=== PATIENT | male | born 1990 | race African-American/Black ===

== ENCOUNTER 2020-02-20 17:15 | Emergency (ER) | payer SELFPAY ==
[~2020-02-20] VITALS: Ht 177.8 cm; Wt 81.8 kg
[2020-02-20] MEDS ORDERED: IV NORMAL SALINE 1,000ML 1,000 ML IV ONE (17:30)
--- NOTE | 2020-02-20 17:37 | PHYS DOC ---
Past History Past Medical History: No Pertinent History Past Surgical History: No Surgical History Smoking: Cigarettes Alcohol Use: None Drug Use: Marijuana Adult General Chief Complaint Chief Complaint: MULTIPLE COMPLAINTS [facility] HPI Patient is a 29-year-old male presenting for URI-like symptoms. Onset was 1 w [place] ago. Started out as simple nasal congestion that developed into rhinorrhea, postnasal drip and ongoing dry nonproductive cough. Nothing known makes better, patient reports worsening cough whenever he is lying flat or after smoking. Patient attempted to take "2 big hits "of marijuana in attempt to alleviate his symptoms just prior to arrival but it did not seem to help and made his shortness of breath worse prompting him to come in for evaluation. Associated symptoms include URI-like symptoms, shortness of breath, nonproductive cough, generalized nausea and x3 episodes of looser stools than usual today. Denies fever greater than 100.4, no syncope, no chest pain, no hemoptysis or production of sputum, no abdominal pain, no urinary symptoms, no history of recent long distance travel, sick contacts or known COVID-19 exposure Review of Systems Review of Systems Fourteen body systems of review of systems have been reviewed. See HPI for pertinent positives and negative responses, other valencia all other systems are negative, non-pertinent or non-contributory Physical Exam Physical Exam General: Appears well, non toxic, and comfortable. Smells of marijuana Skin: Warm, dry. Normal for ethnicity. HEENT: Atraumatic. PERRLA. Rhinorrhea and congestion. Nasal turbinates boggy b/l. Moist mucous membranes. Uvula midline. Maintaining secretions. No phonation changes. Neck: Trachea midline. Normal ROM. No stridor. Respiratory: Normal WOB. CTAB w/o w/r/r. No tachypnea. Cardiovascular: Regular rate and rhythm. Normal peripheral perfusion. Abdomen: Soft. Non tender. No distension. Back: Normal ROM. Musculoskeletal: No swelling or deformity. Neuro: Alert and oriented x 4. MAEE. Lymph: No cervical LAD. Psych: Normal affect and mood. Current Patient Data Vital Signs Vital Signs Date Time Temp Pulse Resp B/P (MAP) Pulse Ox O2 Delivery O2 Flow Rate FiO2 02/20/20 18:11 98.6 96 18 139/86 (103) 100 Lab Results Laboratory Tests Test 02/20/20 17:40 Sodium Level 139 mmol/L Potassium Level 4.0 mmol/L Chloride Level 103 mmol/L Carbon Dioxide Level 28 mmol/L Anion Gap 8 Blood Urea Nitrogen 11 mg/dL Creatinine 0.9 mg/dL Estimated GFR (Cockcroft-Gault) 122.5 BUN/Creatinine Ratio 12 Glucose Level 112 mg/dL Calcium Level 8.6 mg/dL Total Bilirubin 0.2 mg/dL Aspartate Amino Transf (AST/SGOT) 19 U/L Alanine Aminotransferase (ALT/SGPT) 24 U/L Alkaline Phosphatase 77 U/L Total Protein 6.8 g/dL Albumin 3.3 g/dL Albumin/Globulin Ratio 0.9 Current Medications Medications (Trade) Dose Ordered Sig/Renzo Route PRN Reason Start Time Stop Time Status Last Admin Dose Admin Sodium Chloride 1,000 ml @ 1,000 mls/hr 1X ONCE IV 02/20/20 17:30 02/20/20 18:29 DC EKG EKG [] Radiology/Procedures Radiology/Procedures [] Heart Score HEART Score for Chest Pain: HEART Score for Chest Pain Response (Comments) Value History Slighlty/Non-Suspicious 0 Age < 45 0 Risk Factors No Risk Factors 0 Total 0 Risk Factors: Risk Factors: DM, Current or recent (<one month) smoker, HTN, HLP, family history of CAD, obesity. Risk Scores: Risk Factors: DM, Current or recent (<one month) smoker, HTN, HLP, family history of CAD, obesity. Course & Med Decision Making Course & Med Decision Making Discussed with the patient all findings and diagnostic testing. I discussed most likely diagnosis of viral syndrome, cannot exclude COVID-19 infection. Patient checked for COVID-19 and will discharge home as a PUI with instructions to self quarantine. I also advised patient to stop smoking marijuana. I stressed need for close outpatient follow-up to review today's ER visit whenever it is safe to do so pending COVID-19 test results. Strict return precautions were also discussed at length with good understanding by patient. Patient voiced understanding and agreement with the plan. Patient knows to come back for repeat evaluation if concerning signs or symptoms present prior to outpatient follow- up. Hemodynamically stable, ambulatory and well-appearing at time of disposition. Dragon Disclaimer Dragon Disclaimer This electronic medical record was generated, in whole or in part, using a voice recognition dictation system. Departure Departure: Impression: Primary Impression: Viral syndrome Additional Impressions: Person under investigation for COVID-19 Nausea and vomiting Disposition: 01 DC HOME SELF CARE/HOMELESS Condition: IMPROVED Referrals: PCP,ИВАН (PCP) Patient Instructions: Viral Syndrome Additional Instructions: You were seen for generalized upper respiratory tract infection-like symptoms concerning for possible infection with COVID-19. Your physical exam was reassuring. We tested you for COVID-19 but this test does not come back for 1 to 2 days. In the meantime you need to quarantine yourself at home away from all other individuals, especially those who are elderly or have any other chronic health issues or an immunocompromised status. You should return to the ED if you develop worsening cough, shortness of breath, chest pain, or any other new or concerning symptoms. Alternate Tylenol and ibuprofen as needed for body aches and pain. If your test does come back positive you need to quarantine yourself for 10 days until symptom-free. You should make sure to drink plenty of fluids and get plenty of rest. Problem Qualifiers TAMIKO WHITAKER DO Feb 20, 2020 17:37
[2020-02-20 18:11] VITALS: BP 139/86
[2020-02-20 18:18] LABS: CALCIUM 8.6 mg/dL (8.5-10.1); CREATININE 0.9 mg/dL (0.7-1.3); GFR 122.5
[2020-02-20 18:23] LABS: ALBUMIN 3.3 g/dL (3.4-5.0); ALBUMIN/GLOBULIN RATIO 0.9 (1.0-1.7); TOTAL BILIRUBIN 0.2 mg/dL (0.2-1.0); TOTAL PROTEIN 6.8 g/dL (6.4-8.2)
--- NOTE | 2020-02-22 10:43 | NUR ---
IP: attempt to notify patient of COVID result, left callback message.
== END 2020-02-20 18:57 | disposition home or self-care (01) ==
LOC: ER 17:15
DX: B34.9 Viral infection, unspecified (principal); Z20.828 Contact with and (suspected) exposure to other viral communicable diseases; R11.2 Nausea with vomiting, unspecified; R05 Cough; J34.89 Other specified disorders of nose and nasal sinuses; F17.210 Nicotine dependence, cigarettes, uncomplicated; F12.90 Cannabis use, unspecified, uncomplicated
CPT/HCPCS: 36415; 80053; 99283; U0003; C9803

== ENCOUNTER 2021-01-30 17:51 | Emergency (ER) | payer MEDICAID, OTHER | END 2021-01-30 18:45 | disposition left against medical advice (07) | LOC: ER 17:51 | DX: M54.9 Dorsalgia, unspecified (principal); Z53.21 Procedure and treatment not carried out due to patient leaving prior to being seen by health care provider ==

== ENCOUNTER 2021-02-13 14:40 | Emergency (ER) | payer SELFPAY ==
[~2021-02-13] VITALS: Ht 180.3 cm; Wt 69.4 kg
[2021-02-13 15:10] VITALS: BP 153/74
[2021-02-13] MEDS ORDERED: PENICILLIN G BENZATHINE LA 1,200,000 UNIT/2 ML DISP.SYRIN. IM ONE (16:30)
[2021-02-13] MEDS ORDERED: DIPHTH,PERTUSS(ACELL),TET TOX 0.5 ML DISP.SYRIN. VAX IM ONE (16:30)
[2021-02-13] MEDS ORDERED: HYDR-2155 PO (16:33)
--- NOTE | 2021-02-13 16:34 | PHYS DOC ---
Past History Past Medical History: No Pertinent History Past Surgical History: No Surgical History Smoking: Cigarettes Alcohol Use: None Drug Use: Marijuana General Adult EDM: Chief Complaint: COLD EXPOSURE HPI: HPI: Patient is a 30-year-old male who presents to the emergency department for frostbite to his feet. Patient reports that he was out in the for 3 hours on Saturday without proper shoes. Patient reports burning and tingling pain to both of his feet. He reports that he is able to bear weight and ambulate and denies any decreased sensation in his extremities. Review of Systems: Review of Systems: Musculoskeletal: See HPI Integument: See HPI Neurologic: See HPI Current Medications: Current Meds: Current Medications Medications (Trade) Dose Ordered Sig/Renzo Start Time Stop Time Status Last Admin Dose Admin Diphtheria/ Tetanus/Acell Pertussis (Boostrix) 0.5 ml ONCE ONCE 02/13/21 16:30 02/13/21 16:31 Penicillin G Benzathine (Bicillin L-A) 1,200,000 unit 1X ONCE 02/13/21 16:30 02/13/21 16:31 Allergies: Allergies: Allergies Coded Allergies Type Severity Reaction Last Updated Verified No Known Drug Allergies 02/20/20 No Physical Exam: PE: Constitutional: Well developed, well nourished, no acute distress, non-toxic appearance. [] HENT: Normocephalic, atraumatic, bilateral external ears normal, oropharynx moist, no oral exudates, nose normal. [] Eyes: PERRL, EOMI, conjunctiva normal, no discharge. [] Neck: Normal range of motion, no tenderness, supple, no stridor. [] Cardiovascular:Heart rate regular rhythm, no murmur [] Lungs & Thorax: Bilateral breath sounds clear to auscultation [] Abdomen: Bowel sounds normal, soft, no tenderness, no masses, no pulsatile masses. [] Skin: Warm, dry, no erythema, no rasH, white blistering noted to bilateral feet worse to heels, refill less than 3 seconds to all areas of foot except right fourth and fifth toe, patient does have black discoloration to bilateral feet but that is from his shoes and is removable. Range of motion intact, no hemorrhagic blisters, no open wounds, no redness/warmth or drainage Back: Normal range of motion Extremities: No tenderness, no cyanosis, no clubbing, ROM intact, no edema. [] Neurologic: Alert and oriented X 3, normal motor function, normal sensory function, no focal deficits noted. [] Psychologic: Affect normal, judgement normal, mood normal. [] Current Patient Data: Vital Signs: Vital Signs Date Time Temp Pulse Resp B/P (MAP) Pulse Ox O2 Delivery O2 Flow Rate FiO2 02/13/21 15:10 98.1 105 20 153/74 (100) 97 Room Air EKG: EKG: [] Radiology/Procedures: Radiology/Procedures: [] Heart Score: C/O Chest Pain: N/A Risk Factors: Risk Factors: DM, Current or recent (<one month) smoker, HTN, HLP, family history of CAD, obesity. Risk Scores: Score 0 - 3: 2.5% MACE over next 6 weeks - Discharge Home Score 4 - 6: 20.3% MACE over next 6 weeks - Admit for Clinical Observation Score 7 - 10: 72.7% MACE over next 6 weeks - Early Invasive Strategies Course & Med Decision Making: Course & Med Decision Making Pertinent Labs and Imaging studies reviewed. (See chart for details) Patient presents to the emergency department for frostbite to bilateral feet that occurred 48 hours ago. Range of motion and neuro intact is intact. I spoke to Dr. James with [facility] who advised to ensure that feet are rewarmed, ensure adequate hydration, pain management, elevation, wound with dry sterile gauze. He stated that patient is beyond the window for TPA. He stated that it would take approximately 2 months for demarcation and patient should follow-up with [facility] within a week or 2. Feet are already rewarmed. Dry sterile sudeep ssings were placed. Patient educated on wound care. Patient treated with tetanus and antibiotic. Patient also given pain medication for home. Patient given community resources for shelters. He was also given follow-up information for [facility]. I discussed with patient all findings and diagnostic testing as well as the need to follow-up with PCP for further evaluation and treatment or return to the ER if any new or worsening symptoms. Strict return precautions were also discussed at length. Patient voiced understanding and agreement with the plan. Patient is hemodynamically stable at the time of disposition. Norman Disclaimer: Norman Disclaimer: This electronic medical record was generated, in whole or in part, using a voice recognition dictation system. Departure Departure: Impression: Primary Impression: Frostbite Qualified Codes: T33.90XA - Superficial frostbite of unspecified sites, initial encounter Disposition: HOME / SELF CARE / HOMELESS Condition: GOOD Referrals: PCP,NO (PCP) Patient Instructions: Frostbite Additional Instructions: He was seen in the emergency department today for frostbite to your feet. Your tetanus is updated and you are given an antibiotic in the emergency department. You need to keep your feet clean and dry. Keep dressings in place. Please keep your feet warm and prevent refreezing. Please use elevation. Ensure proper hydration duration and increase your fluids. You can take NSAIDs for mild pain and you are being discharged home with hydrocodone and Tylenol combination tablet for severe pain. This medication may cause drowsiness so do not take need to be alert, driving a vehicle or with alcohol. If you do not have a home please see the community resources that we were provided for you because it is necessary that you do not stay out in the cold. Please follow-up with burn center within a week. You can call them at [phone]. If you develop worsening of your pain or any signs of infection which include redness, warmth, swelling or drainage, decreased sensation in your extremities or decreased range of motion or inability to ambulate please return to the ER. Scripts Hydrocodone Bit/Acetaminophen (HYDROCODONE-APAP 5-325 ) 1 Each Tablet 1 TAB PO PRN Q6HRS PRN for PAIN for 2 Days, #8 TAB 0 Refills Prov: JOSEFINA PACK APRN 02/13/21 JOSEFINA PACK APRN Feb 13, 2021 16:34
== END 2021-02-13 17:00 | disposition home or self-care (01) ==
LOC: ER 14:40
DX: T33.822A Superficial frostbite of left foot, initial encounter (principal); T33.821A Superficial frostbite of right foot, initial encounter; F17.210 Nicotine dependence, cigarettes, uncomplicated; X31.XXXA Exposure to excessive natural cold, initial encounter; Y93.89 Activity, other specified; Y92.89 Other specified places as the place of occurrence of the external cause; Y99.8 Other external cause status
CPT/HCPCS: 90471; 90715; 96372; 99284; J0561

== ENCOUNTER 2021-04-30 18:35 | Emergency (ER) | payer SELFPAY ==
[~2021-04-30] VITALS: Ht 180.3 cm; Wt 73.2 kg
[~2021-04-30 18:35] MED LIST: HYDR-2155 PO
--- NOTE | 2021-04-30 19:54 | PHYS DOC ---
Past History Past Medical History: No Pertinent History Past Surgical History: No Surgical History Smoking: Cigarettes Alcohol Use: None Drug Use: Marijuana General Adult EDM: Chief Complaint: CELLULITIS HPI: HPI: Patient is a 30 year old male with no significant PMHx who presents with right great toe pain for the last three days. He states that about three days ago he started having some moderate 6/10 right great toe pain that radiated into his calf. He pulled off his sock and noticed a small blister to the underside of his right great toe that he removed. He states that since then the pain has worsened to a 8/10 today, redness and swelling to the area with drainage from the toe and a "foul smell". He has been taking ibuprofen 400mg daily with no relief and nothing he does makes the pain better. Any movement makes the pain worse. He reports some chills but denies any nausea or vomiting. He was seen back in 02/17/2021 for frostnip of his feet b/l and has not had any follow up. He continues to have pain in his feet b/l and has been seen multiple times for the pain with recent admission to [facility] on 04/19/21 with discharge on 04/21/21. He was given gabapentin and oxycodone for pain but reports he is out of his oxycodone pain medication. Review of Systems: Review of Systems: Constitutional: Denies fever, reports chills Musculoskeletal: Denies back pain; reports right ankle and toe pain Integument: Reports ulceration to the right great toe and erythema and swelling to right foot up to ankle Neurologic: Denies headache, focal weakness or sensory changes Complete systems were reviewed and found to be within normal limits, except as documented in this note. Current Medications: Current Meds: Current Medications Medications (Trade) Dose Ordered Sig/Renzo Start Time Stop Time Status Last Admin Dose Admin Clindamycin Phosphate 50 ml @ 100 mls/hr 1X ONCE 04/30/21 19:15 04/30/21 19:44 Ketorolac Tromethamine (Toradol 15mg Vial) 15 mg 1X ONCE 04/30/21 19:30 04/30/21 19:31 DC Mupirocin (Bactroban) 1 darshana 1X ONCE 04/30/21 19:30 04/30/21 19:31 DC Sodium Chloride 1,000 ml @ 1,000 mls/hr 1X ONCE 04/30/21 19:15 04/30/21 20:14 Allergies: Allergies: Allergies Coded Allergies Type Severity Reaction Last Updated Verified No Known Drug Allergies 02/20/20 No Physical Exam: PE: Constitutional: Well developed, well nourished, no acute distress, non-toxic appearance HENT: Normocephalic, atraumatic Eyes: Conjunctiva normal, no discharge Neck: Normal range of motion, no tenderness, supple Lungs & Thorax: No respiratory distress, equal chest rise and fall Skin: Ulceration to the plantar surface of the right great toe with maceration around the wound site, no significant drainage from the wound site, dry/cracked skin to the left and right feet, erythema and edema to the right foot up to ankle Back: No tenderness, no CVA tenderness Extremities: Tenderness to the right foot with normal ROM to the right ankle, normal ROM to the right knee, +2 b/l TP pulses, difficulty palpating the dorsal pulses given edema Neurologic: Alert and oriented X 3, normal motor function, normal sensory function, no focal deficits noted Psychologic: Affect normal, judgment normal Current Patient Data: Vital Signs: Vital Signs Date Time Temp Pulse Resp B/P (MAP) Pulse Ox O2 Delivery O2 Flow Rate FiO2 04/30/21 18:45 99.0 115 18 142/72 (95) 98 Room Air EKG: EKG: [] Radiology/Procedures: Radiology/Procedures: PROCEDURE: FOOT RIGHT 3V Exam: Right foot 3 views INDICATION: Ulceration right great toe. TECHNIQUE: Frontal, lateral oblique views of the right foot Comparisons: None FINDINGS: Diffuse soft tissue swelling at the forefoot. There is irregularity at the level of the first digit. Bone mineralization is normal. No acute or healed fractures. Joint spaces are well-maintained. IMPRESSION: Soft tissue swelling at the forefoot with ulceration at the first digit. No underlying osseous abnormality identified. Electronically signed by: Anirudh Vargas MD (04/30/2021 8:41 PM) [facility] Heart Score: C/O Chest Pain: N/A Course & Med Decision Making: Course & Med Decision Making Pertinent Labs and Imaging studies reviewed. (See chart for details) Patient presents with HPI and physical exam concerning for right foot cellulitis and/or osteomyelitis of right big toe. Patient has superficial skin ulceration to plantar aspect of large toe. Patient is afebrile. Labs obtained and posted to chart. WBC and lactic acid within normal limits. CRP elevated. X-ray obtained without signs of bony involvement. Empiric antibiotic initiated. Pain addressed. Dressing applied with local wound care including topical antibiotic. A postop shoe was also provided to prevent friction/pressure on ulcer. Patient stable for discharge with outpatient follow-up with PCP/wound care. Wound care referral provided. Discussed findings and plan with patient, who a cknowledges understanding and agreement. Norman Disclaimer: Norman Disclaimer: This electronic medical record was generated, in whole or in part, using a voice recognition dictation system. Splinting Splinting : Location: Right foot Pre-Made Type: Post op shoe Pre-Proc Neuro Vasc Exam: normal Post-Proc Neuro Vasc Exam: normal, unchanged from pre-exam Departure Departure: Impression: Primary Impression: Toe ulcer Qualified Codes: L97.511 - Non-pressure chronic ulcer of other part of right foot limited to breakdown of skin Additional Impression: Cellulitis Qualified Codes: L03.115 - Cellulitis of right lower limb Disposition: 01 HOME / SELF CARE / HOMELESS Condition: STABLE Referrals: PCP,NO (PCP) Patient Instructions: Cellulitis, [id number], Skin Ulcer, Wound Care, [id number] Additional Instructions: Do not soak your wound. You may shower. Clean wound daily with soap and water. Use provided antibiotic ointment 3 times daily with clean dressing. Call wound care at [facility] for further evaluation and treatment of your chronic foot wound. [address] [place] [address] Scripts Hydrocodone Bit/Acetaminophen (HYDROCODONE-APAP 5-325 ) 1 Each Tablet 0.5 TAB PO PRN Q6HRS PRN for PAIN, #10 TAB 0 Refills Prov: KRISTIE KEATING DO 04/30/21 Clindamycin Hcl (CLINDAMYCIN HCL) 300 Mg Capsule 1 CAP PO TID for Infection for 10 Days, #30 CAP Prov: KRISTIE KEATING DO 04/30/21 Mupirocin (MUPIROCIN) 22 Gm Oint...g. 1 DARSHANA TP TID for Skin ulceration, #22 GM Prov: KRISTIE KEATING DO 04/30/21 KRISTIE KEATING DO Apr 30, 2021 19:54
[2021-04-30] MEDS: IV NORMAL SALINE 1,000ML 1,000 ML IV ONE (20:10)
[2021-04-30] MEDS: KETOROLAC 15 MG/ML VIAL. IVP ONE (20:10)
[2021-04-30] MEDS: CLINDAMYCIN 600MG PREMIX 50 ML IV ONE (20:11)
[2021-04-30] MEDS: MUPIROCIN 2% TOPICAL OINTMENT 22GM TUBE. TP ONE (20:11)
[2021-04-30 20:17] LABS: BASO # 0.2 x10^3/uL (0.0-0.2); BASO % 3 % (0-3); EOS # 0.1 x10^3/uL (0.0-0.7); EOS % 1 % (0-3); HEMATOCRIT 43.2 % (39.0-53.0); HEMOGLOBIN 13.7 g/dL (13.0-17.5); LYMPH # 1.1 x10^3/uL (1.0-4.8); LYMPH % 15 % (24-48); MEAN CORPUSCULAR HEMOGLOBIN 28 pg (25-35); MEAN CORPUSCULAR HGB CONC 32 g/dL (31-37); MEAN CORPUSCULAR VOLUME 87 fL (79-100); MONO # 0.6 x10^3/uL (0.0-1.1); MONO % 9 % (0-9); NEUT # 5.2 x10^3uL (1.8-7.7); NEUT % 72 % (31-73); PLATELET COUNT 252 x10^3/uL (140-400); RED BLOOD COUNT 4.99 x10^6/uL (4.30-5.70); RED CELL DISTRIBUTION WIDTH 13.3 % (11.5-14.5); WHITE BLOOD COUNT 7.2 x10^3/uL (4.0-11.0)
[2021-04-30 20:26] LABS: CALCIUM 9.1 mg/dL (8.5-10.1); CREATININE 0.9 mg/dL (0.7-1.3); GFR 121.6; POTASSIUM 4.1 mmol/L (3.5-5.1)
[2021-04-30 20:32] LABS: ALBUMIN 3.5 g/dL (3.4-5.0); ALBUMIN/GLOBULIN RATIO 0.9 (1.0-1.7); C REACTIVE PROTEIN 13.4 mg/L (0-3.3); MAGNESIUM 2.1 mg/dL (1.8-2.4); TOTAL BILIRUBIN 0.2 mg/dL (0.2-1.0); TOTAL PROTEIN 7.5 g/dL (6.4-8.2)
--- NOTE | 2021-04-30 20:43 | RAD ---
Exam: Right foot 3 views INDICATION: Ulceration right great toe. TECHNIQUE: Frontal, lateral oblique views of the right foot Comparisons: None FINDINGS: Diffuse soft tissue swelling at the forefoot. There is irregularity at the level of the first digit. Bone mineralization is normal. No acute or healed fractures. Joint spaces are well-maintained. IMPRESSION: Soft tissue swelling at the forefoot with ulceration at the first digit. No underlying osseous abnorm ality identified. Electronically signed by: Anirudh Vargas MD (04/30/2021 8:41 PM) [facility]
[2021-04-30] MEDS ORDERED: CLIN-95 PO (20:54)
[2021-04-30] MEDS ORDERED: MUPI22OI2 TP (20:54)
[2021-04-30] MEDS ORDERED: HYDR-2155 PO (20:54)
[2021-04-30] MEDS: HYDROcodone/APAP 5/325MG 1 TAB TABLET PO ONE (21:05)
[2021-04-30 21:31] LABS: SEDIMENTATION RATE 18 (0-15)
[2021-04-30 21:37] VITALS: BP 122/72
== END 2021-04-30 21:40 | disposition home or self-care (01) ==
LOC: ER 18:35
DX: L97.511 Non-pressure chronic ulcer of other part of right foot limited to breakdown of skin (principal); L03.115 Cellulitis of right lower limb; F17.210 Nicotine dependence, cigarettes, uncomplicated
CPT/HCPCS: 36415; 73630; 80053; 83605; 83735; 85025; 85651; 86140; 87040; 87077; 87186; 96365; 96375; 99284; J1885; J3490; J7030; 87205